=== PATIENT | male | born 1970 | race African-American/Black ===

== ENCOUNTER → 2019-06-12 15:35 | Outpatient (CLI) | payer BC, SELFPAY ==
--- NOTE | 2019-06-12 15:43 | XR_ITS ---
PROCEDURE: XR ANKLE LT MIN 3V CLINICAL INDICATION: Ankle FX Follow-up closed reduction fracture COMPARISON: XR TIBIA FIBULA LT 2V from 06/11/2019 FINDINGS: There has been interval improvement in the displacement of the medial malleolar and distal fibular fractures. The ankle mortise remains slightly widened. Nondisplaced posterior distal tibial fracture also noted. There is a posterior splint in place. IMPRESSION: Status post closed reduction with improved alignment of the lateral malleolar and medial malleolar fractures. Dictated by: Prudencio Jacob MD 06/12/2019 17:40 Electronically signed by Prudencio Jacob MD in [place] 06/12/2019 17:40
--- NOTE | 2019-06-12 15:43 | XR_ITS ---
PROCEDURE: XR CHEST 2V CLINICAL HISTORY: HTN,PRIOR TOBACCO USE COMPARISON: No exams were available for comparison FINDINGS: Normal heart size. No evidence of CHF. The superior mediastinum is somewhat prominent. This may only be vasculature. Follow-up suggested to confirm stability. The lungs are clear without infiltrates, suspicious nodules, or pleural effusions. No acute bony abnormalities. IMPRESSION: Mild prominence of the superior mediastinum in the paratracheal region of questionable clinical significance. Consider follow-up to confirm stability Dictated by: Prudencio Jacob MD 06/12/2019 17:38 Electronically signed by Prudencio Jacob MD in [place] 06/12/2019 17:38
[2019-06-12 16:01] LABS: Basophils % 0.4 % (0.1-2.0); Eosinophils # 0.1 K/mm3 (0.0-0.4); Eosinophils % 1.5 % (0.1-12.0); Hematocrit 40.5 % (42.0-52.0); Hemoglobin 12.9 g/dL (14.1-18.0); Lymphocytes # 1.5 K/mm3 (0.7-4.5); Lymphocytes % 18.8 % (10-50); Mean Corpuscular HGB Conc 31.9 g/dL (31.8-35.4); Mean Corpuscular Hemoglobin 33.7 pg (27.0-31.2); Mean Corpuscular Volume 105.6 fl (80-94); Mean Platelet Volume 7.3 fl (7.4-10.4); Monocytes # 0.7 K/mm3 (0.1-1.0); Monocytes % 8.6 % (1.7-9.3); Neutrophils # 5.7 K/mm3 (1.8-7.8); Neutrophils % 70.7 % (37.0-80.0); Platelet Count 290 K/mm3 (142-424); Red Blood Count 3.84 M/mm3 (4.60-6.20); Red Cell Distribution Width 13.3 % (11.5-17.5); White Blood Count 8.1 K/mm3 (4.8-10.8)
[2019-06-12 16:51] LABS: Alanine Aminotransferase 16 U/L (12-78); Albumin Level 3.9 gm/dL (3.4-5.0); Albumin/Globulin Ratio 1.3 (1.1-1.8); Alkaline Phosphatase 115 U/L (46-116); Anion Gap 12.1 mEq/L (5-15); Aspartate Amino Transferase 14 U/L (15-37); Bilirubin,Total 0.6 mg/dL (0.2-1.0); Blood Urea Nitrogen 11 mg/dL (7-18); Calcium 8.8 mg/dL (8.5-10.1); Carbon Dioxide 27 mmol/L (21.0-32.0); Chloride 102 mmol/L (98-107); Creatinine,Serum 0.95 mg/dL (0.70-1.30); Estimated Glomerular Filt Rate 84 ml/min (>60); GFR (African American) 102 ML/MIN (>60); Globulin 2.9 gm/dl (1.3-3.2); Glucose 100 mg/dL (74-106); Potassium 4.1 mmoL/L (3.5-5.1); Sodium 137 mmol/L (136-145); Total Protein,Serum 6.8 gm/dL (6.4-8.2)
== END ==
PROVIDERS: Visit Provider Orthopaedic Surgery
DX: Z01.818 Encounter for other preprocedural examination (principal); S82.842A Displaced bimalleolar fracture of left lower leg, initial encounter for closed fracture
CPT/HCPCS: 36415; 71046; 73610; 80053; 85025

== ENCOUNTER → 2019-06-24 12:45 | Outpatient (CLI) | payer BC, SELFPAY ==
--- NOTE | 2019-06-24 12:54 | XR_ITS ---
PROCEDURE: XR ANKLE LT MIN 3V CLINICAL INDICATION: follow up from ORIF LT ankle; out of splint COMPARISON: XR ANKLE LT MIN 3V from 06/12/2019 FINDINGS: There is now orthopedic hardware with fixation plate and fixation screws involving distal fibula and fixation screws along the medial malleolus. There is anatomic alignment of the fracture fragments. The joint spaces and alignment are normal. Bone density is normal. The splint device is no longer present. IMPRESSION: Postoperative findings as described. Dictated by: Jeb Rocha 06/24/2019 13:27 Electronically signed by Jeb Rocha in [place] 06/24/2019 13:28
== END ==
PROVIDERS: PCP Family Medicine; Visit Provider Orthopaedic Surgery
DX: S82.842A Displaced bimalleolar fracture of left lower leg, initial encounter for closed fracture (principal); Z48.89 Encounter for other specified surgical aftercare
CPT/HCPCS: 73610

== ENCOUNTER 2019-06-29 16:24 | Outpatient (RCR) | payer BC, SELFPAY | END 2019-06-29 16:45 | disposition home or self-care (01) | LOC: PT 16:24 | PROVIDERS: Visit Provider Orthopaedic Surgery | DX: S82.852D Displaced trimalleolar fracture of left lower leg, subsequent encounter for closed fracture with routine healing (principal) | CPT/HCPCS: 97760 ==

== ENCOUNTER → 2019-07-24 13:35 | Outpatient (CLI) | payer BC, SELFPAY ==
--- NOTE | 2019-07-24 13:40 | XR_ITS ---
PROCEDURE: XR ANKLE LT MIN 3V CLINICAL INDICATION: ankle fx fu Follow-up fracture COMPARISON: XR ANKLE LT MIN 3V from 06/12/2019 XR ANKLE LT 2V from 06/16/2019 XR ANKLE LT MIN 3V from 06/24/2019 FINDINGS: Status post ORIF distal tib fib with no change in the hardware with good bony alignment compared to 06/24/2019. Oblique fracture of the distal fibula and medial malleolar region as well as posterior distal tibia once again noted. There has been development of a transverse band of lucency at the distal tibia at the epiphyseal remnant region. This may only be due to diffuse disuse osteopenia. An associated nondisplaced fracture would also be included in the differential diagnosis. IMPRESSION: The good alignment status post ORIF distal tib fib. There is a new transverse zone of lucency at the distal tibia which may only be due to diffuse osteopenia. Continued follow-up suggested Dictated by: Prudencio Jacob MD 07/24/2019 14:12 Electronically signed by Prudencio Jacob MD in [place] 07/24/2019 14:12
== END ==
PROVIDERS: PCP Family Medicine; Visit Provider Orthopaedic Surgery
DX: S82.842A Displaced bimalleolar fracture of left lower leg, initial encounter for closed fracture (principal)
CPT/HCPCS: 73610

== ENCOUNTER → 2019-08-14 13:53 | Outpatient (CLI) | payer BC, SELFPAY ==
--- NOTE | 2019-08-14 13:58 | XR_ITS ---
PROCEDURE: XR ANKLE LT MIN 3V CLINICAL INDICATION: Follow up of Lt ankle FX Follow-up ORIF/ COMPARISON: XR ANKLE LT MIN 3V from 06/12/2019 XR ANKLE LT 2V from 06/16/2019 XR ANKLE LT MIN 3V from 06/24/2019 XR ANKLE LT MIN 3V from 07/24/2019 FINDINGS: Status post ORIF distal fibula and medial malleolus with syndesmotic repair as previously described with good alignment overall not significantly changed. The ankle mortise appears intact. There is a lucent area along the talar dome laterally and could represent a small osteochondral defect or focal area of osteopenia. There is an avulsion fracture fragment along the neck of the talus anteriorly. IMPRESSION: No change good alignment status post ORIF distal tib fib as described above. Dictated by: Prudencio Jacob MD 08/14/2019 14:37 Electronically signed by Prudencio Jacob MD in [place] 08/14/2019 14:37
== END ==
PROVIDERS: PCP Family Medicine; Visit Provider Orthopaedic Surgery
DX: S82.842A Displaced bimalleolar fracture of left lower leg, initial encounter for closed fracture (principal)
CPT/HCPCS: 73610

== ENCOUNTER → 2019-09-14 13:30 | Outpatient (CLI) | payer BC, SELFPAY ==
--- NOTE | 2019-09-14 13:34 | XR_ITS ---
PROCEDURE: XR ANKLE LT MIN 3V CLINICAL INDICATION: Ankle FX COMPARISON: XR ANKLE LT 2V from 06/16/2019 XR ANKLE LT MIN 3V from 06/24/2019 XR ANKLE LT MIN 3V from 07/24/2019 FINDINGS: Orthopedic hardware is stable and appears to be intact. Bone density is normal. There is no acute fracture. Alignment joint spaces are normal. Soft tissues are unremarkable. IMPRESSION: Unremarkable. No change and no acute process. Dictated by: Jeb Rocha 09/14/2019 15:13 Electronically signed by Jeb Rocha in [place] 09/14/2019 15:13
== END ==
PROVIDERS: PCP Family Medicine; Visit Provider Orthopaedic Surgery
DX: S82.842A Displaced bimalleolar fracture of left lower leg, initial encounter for closed fracture (principal)
CPT/HCPCS: 73610

== ENCOUNTER 2019-10-02 15:30 | Outpatient (RCR) | payer BC, SELFPAY ==
--- NOTE | 2019-08-18 15:36 | HMH.PTOPEV ---
PT Outpatient Evaluation Rehab PT Outpatient Evaluation Start: 08/18/19 15:02 Freq: Status: Active Protocol: Document 08/18/19 15:02 SRINI (Rec: 08/18/19 15:35 SRINI [id number]) Electronically Signed By Kirill Jewell, PT 08/18/19 15:02 Outpatient Therapy Subjective History Subjective History Patient is a 49 year old male presenting to outpatient PT with reports of L post- surgical foot/ankle pain S/P L ankle ORIF for bi-malleolar fracture. Sx date 06/11/19 ( 9w5d S/P). Pt reports that he was carrying some groceries and fell resulting in bi- malleolar fracutre. Pt currently WBAT with orders to ween into lace up corsett ankle brace over the next 2 weeks. No other comorbidities to report. Chief Complaint Pain,Stiff,Swelling, Paresthesia,Weakness Symptom Type Ache,Numbness Symptoms Relieved By Ice Symptoms Aggravated By Standing,Bending/Stooping, Physical Activity,Walking Prior Functional Limitations None Current Functional Limitations Housework,Standing,Squatting, Recreation Activity,Walking, Stairs,Balance,Bending/ Stooping Symptom Description Constant but Variable Level of pain today (0-10) 2 Pain scale - at its best (0-10) 2 Pain scale - at its worst (0-10) 4 Ankle/Foot Eval Gait Observation General Gait Pattern Observation Antalgic Gait,Decrease Weight Bear (L) Palpation Tenderness left Ankle/Foot Palpation Findings Tenderness Ankle/Foot Palpation Overall Comment 3/4 ATF TTP positive PTF TTP positive CF TTP positive ROM Ankle/Foot Dorsiflexion w/Knee Extended 10 Active Range Motion (degrees) Ankle/Foot Plantar Flexion Active Range 60 of Motion (degrees) Ankle/Foot Eversion Active Range of 11 Motion (degrees) Ankle/Foot Inversion Active Range of 30 Motion (degrees) Ankle/Foot ROM Limitations Soft Tissue Tightness,Bony Restriction Great Toe ROM Reason Not Measured Within Functional Limits Accessory Movements Ankle Accessory Movements that Elicit Talus Dorsal Holloway,Talus Symptoms Ventral Holloway MMT left Ankle Dorsiflexion Strength Gra
--- NOTE | 2019-09-25 15:33 | HMH.RHREAS ---
Rehab Reassessment Rehab OP Re-assessment Start: 09/25/19 15:26 Freq: Status: Active Protocol: Document 09/25/19 15:27 SRINI (Rec: 09/25/19 15:32 SRINI [id number]) Electronically Signed By Kirill Jewell, PT 09/25/19 15:27 Rehab Re-assessment Subjective Subjective Pt reports 80% improvement since start of care. Objective Objective Notes AROM: DF 10; PF 45; INV/EV WNL MMT: DF 5/5, PF 5/5, INV/EV 5- /5 Pain: 1/10 today; 3/10 at worst over past week Neuro: WNL Special Tests: negative Assessment Progress Assessment Progressing as Expected Assessment Notes Pt is progressing well with Rx . He has progressed to ambulation out of brace in normal shoe wear. No apparent gait deviations. He continues to have difficulty with descending stairs. He reports that MD has cleared him to return to work in approximately 2 weeks. Pt denies any expected difficulty with work related tasks. Patient goals met STG's, LTG's except for stairs Goals Not Met Stairs Revised Goals NA Plan Plan Continue with POC until return to work per MD/patient request. Frequency of Therapy 2x/week Duration of therapy 2 weeks. Time and Billing Re-Eval Time 15 Re-Eval Billing Units 1 PHYSICIAN CERTIFICATION: I certify the specified therapy services for Johnnie Dougherty are required, authorized, and reviewed every 30 days.
== END 2019-10-02 15:35 | disposition home or self-care (01) ==
LOC: PT 15:30
PROVIDERS: PCP Family Medicine; Visit Provider Orthopaedic Surgery
DX: S82.852D Displaced trimalleolar fracture of left lower leg, subsequent encounter for closed fracture with routine healing (principal)
CPT/HCPCS: 97010; 97014; 97016; 97110; 97140; 97163; 97164; G0283

== ENCOUNTER → 2019-11-02 13:53 | Outpatient (CLI) | payer BC, SELFPAY ==
--- NOTE | 2019-11-02 13:57 | XR_ITS ---
PROCEDURE: XR ANKLE WT BEARING LT MIN 3V CLINICAL INDICATION: ankle fx fu Follow-up fracture/ORIF COMPARISON: XR ANKLE LT MIN 3V from 06/24/2019 XR ANKLE LT MIN 3V from 07/24/2019 XR ANKLE LT MIN 3V from 08/14/2019 XR ANKLE LT MIN 3V from 09/14/2019 FINDINGS: Status post ORIF distal tib fib with no change in the fibular bone plate and medial malleolar screws as well as a translucent fixator between the distal tib fib. The ankle mortise is preserved. A small calcific density is present at the neck of the talus and may be due an avulsion injury. IMPRESSION: Good alignment status post ORIF distal tib fib Dictated by: Prudencio Jacob MD 11/02/2019 14:52 Electronically signed by Prudencio Jacob MD in [place] 11/02/2019 14:52
== END ==
PROVIDERS: PCP Family Medicine; Visit Provider Orthopaedic Surgery
DX: S82.842A Displaced bimalleolar fracture of left lower leg, initial encounter for closed fracture (principal)
CPT/HCPCS: 73610

== ENCOUNTER → 2020-05-02 10:09 | Outpatient (CLI) | payer BC, SELFPAY ==
--- NOTE | 2020-05-02 10:14 | XR_ITS ---
PROCEDURE: XR TIBIA FIBULA LT 2V CLINICAL INDICATION: Lower leg pain COMPARISON: CR XR TIBIA FIBULA LT 2V from 06/11/2019 FINDINGS: Prior ORIF distal tib fib with lateral fibular bone plate with prior syndesmosis repair with a translucent fixator at the distal tib fib and 2 screws within the medial malleolar region. The fracture lines are no longer apparent. No acute bony finding. The joint spaces are well preserved. IMPRESSION: Prior ORIF healed distal tib fib fracture with good alignment Dictated b Prudencio Jacob MD 05/02/2020 11:07 Prudencio Jacob MD in [place] 05/02/2020 11:07
== END ==
PROVIDERS: PCP Family Medicine; Visit Provider Orthopaedic Surgery
DX: S82.853A Displaced trimalleolar fracture of unspecified lower leg, initial encounter for closed fracture (principal)
CPT/HCPCS: 73590

== ENCOUNTER → 2020-05-18 12:21 | Outpatient (CLI) | payer BC, SELFPAY ==
--- NOTE | 2020-05-18 12:33 | CT_ITS ---
PROCEDURE: CT ANKLE LT WO CON CLINICAL HISTORY: Ankle pain FX 06/11/19,,PERSISTENT PAIN LATERALLY COMPARISON: CR XR ANKLE WT BEARING LT MIN 3V from 11/02/2019 TECHNIQUE: Axial images obtained with sagittal and coronal reformats. All CT scans at the facility use one or more dose reduction, viz: automated exposure control, ma/kV adjustment per patient size (including targeted exams where dose is matched to indication, i.e. head), or iterative reconstruction technique. FINDINGS: Prior ORIF of the tib fib distally. There are 2 screws traversing the medial malleolar region. A translucent fixator is present at the distal tib fib stabilizing the syndesmosis. There is a lateral bone plate at the distal fibula with multiple cortical screws. Fracture line is still visible at the distal fibula. The 3rd from the bottom cortical screw extends through the fracture line. There does appear to be bony union of the posterior aspect of this fracture but incomplete bony union anteriorly and laterally The talar dome has an unremarkable appearance. No evidence of screw fracture or bone plate fracture. There is some mild periarticular calcification at the tip of the medial malleolus and along the anterior aspect of the proximal talus. There is some mild soft tissue swelling at the tip of the lateral malleolus. IMPRESSION: Status post ORIF of the distal tib fib. There is incomplete bony union of the distal fibular fracture with persistent fracture line noted laterally and anteriorly. Dictated by: Prudencio Jacob MD 05/19/2020 08:22 Prudencio Jacob MD in [place] 05/19/2020 08:22
== END ==
PROVIDERS: PCP Family Medicine; Visit Provider Orthopaedic Surgery
DX: G89.18 Other acute postprocedural pain (principal); M25.572 Pain in left ankle and joints of left foot
CPT/HCPCS: 73700

== ENCOUNTER → 2020-06-03 09:36 | Outpatient (CLI) | payer BC, SELFPAY ==
--- NOTE | 2020-06-03 09:40 | XR_ITS ---
PROCEDURE: XR CHEST 2V CLINICAL HISTORY: HTN COMPARISON: CR XR CHEST 2V from 06/12/2019 FINDINGS: The cardiomediastinal silhouette and pulmonary vascularity are within normal limits. There are mild atelectatic or fibrotic changes in the left lung base. The remaining lungs are clear. No acute bony findings. IMPRESSION: Mild left basilar atelectasis or fibrosis Dictated by: Prudencio Jacob MD 06/03/2020 10:37 Prudencio Jacob MD in [place] 06/03/2020 10:37
--- NOTE | 2020-06-03 10:32 | ECG_ITS ---
APPROVED REPORT Exam: Resting ECG HR:53 bpm ECG Measurements Heart Rate 53 AXES [place] 138 P 13 QRSd 92 QRS 5 QT 412 T 11 QTc 386 <Conclusion> Sinus bradycardia Minimal voltage criteria for LVH, may be normal variant Borderline ECG Electronically signed by : Misbah Ragland, 06/05/2020 15:01:22
[2020-06-03 10:52] LABS: Basophils # 0.1 K/mm3 (0-0.2); Basophils % 0.6 % (0.1-2.0); Eosinophils # 0.2 K/mm3 (0.0-0.4); Eosinophils % 2.3 % (0.1-12.0); Hematocrit 42.6 % (42.0-52.0); Lymphocytes # 1.9 K/mm3 (0.7-4.5); Lymphocytes % 25.4 % (10-50); Mean Corpuscular HGB Conc 35.3 g/dL (31.8-35.4); Mean Corpuscular Hemoglobin 35.1 pg (27.0-31.2); Mean Corpuscular Volume 99.4 fl (80-94); Mean Platelet Volume 7.3 fl (7.4-10.4); Monocytes # 0.7 K/mm3 (0.1-1.0); Monocytes % 9.8 % (1.7-9.3); Neutrophils # 4.7 K/mm3 (1.8-7.8); Neutrophils % 61.9 % (37.0-80.0); Platelet Count 292 K/mm3 (142-424); Red Blood Count 4.29 M/mm3 (4.60-6.20); Red Cell Distribution Width 13.4 % (11.5-17.5); White Blood Count 7.5 K/mm3 (4.8-10.8)
[2020-06-03 11:30] LABS: 25-OH Vitamin D, Total 34.6 ng/mL (30-100)
[2020-06-03 11:54] LABS: Chloride 104 mmol/L (98-107); Potassium 4.3 mmoL/L (3.5-5.1); Sodium 141 mmol/L (136-145)
[2020-06-03 11:56] LABS: Alanine Aminotransferase 16 U/L (12-78); Aspartate Amino Transferase 25 U/L (17-59); Blood Urea Nitrogen 17 mg/dl (9-20); Estimated Glomerular Filt Rate 89 ml/min (>60); GFR (African American) 108 ML/MIN (>60)
[2020-06-03 11:57] LABS: Albumin Level 4.5 g/dl (3.5-5.0); Albumin/Globulin Ratio 1.7 (1.1-1.8); Alkaline Phosphatase 107 U/L (38-126); Anion Gap 15.3 mEq/L (5-15); Bilirubin,Total 0.5 mg/dl (0.2-1.3); Calcium 9.6 mg/dl (8.4-10.2); Carbon Dioxide 26 mmol/L (22.0-30.0); Globulin 2.7 g/dL (1.3-3.2); Glucose 94 mg/dl (74-100); Total Protein,Serum 7.2 g/dl (6.3-8.2)
[2020-06-13 09:33] LABS: Nicotine 1.9
[2020-06-13 09:34] LABS: Cotinine 83.1
== END ==
PROVIDERS: PCP Family Medicine; Visit Provider Podiatrist
DX: S82.852K Displaced trimalleolar fracture of left lower leg, subsequent encounter for closed fracture with nonunion (principal)
CPT/HCPCS: 36415; 71046; 80053; 80323; 82306; 85025; 93005

== ENCOUNTER → 2020-06-20 14:54 | Outpatient (CLI) | payer BC, SELFPAY ==
[2020-06-20 16:01] LABS: Coronavirus 19 IgG Antibody Negative (Negative); Coronavirus 19 IgM Antibody Negative (Negative)
== END ==
PROVIDERS: Visit Provider Podiatrist
DX: Z01.89 Encounter for other specified special examinations (principal); S82.852A Displaced trimalleolar fracture of left lower leg, initial encounter for closed fracture; S82.892D Other fracture of left lower leg, subsequent encounter for closed fracture with routine healing
CPT/HCPCS: 36415; 86328

== ENCOUNTER 2020-06-22 08:53 | Day surgery (SDC) | payer BC, SELFPAY ==
[2020-06-22] VITALS (12 sets, daily range): BP systolic 101–168; BP diastolic 51–87; PULSE 63–90; RESP 16–18; TEMP 36.4–43; O2SAT 94–99; BMI 30.9
[2020-06-22 12:17] LABS: Appearance,Urine/Cath CLEAR (Clear); Bilirubin,Cath Negative (Negative); Blood, Urine/Cath Negative (Negative); Color,Urine/Cath YELLOW (Yellow); Glucose,Urine/Cath (UA) Negative (Negative); Ketones,Urine/Cath Negative (Negative); Leukocyte Esterase,Cath Negative (Negative); Microscopic,Cath URINE MICROSCOPIC (MICROSCOPIC); Nitrate,Cath Negative (Negative); PH,Urine/Cath 5.5 (5.0-8.5); Protein,Urine/Cath Negative (Negative); Specific Gravity, Urine/Cath >= 1.030 (1.005-1.030); Urobilinogen,Cath 0.2 EU/dl (0.2)
[2020-06-22 12:55] LABS: RBC,Urine/Cath Occasional # /hpf (0-3); Squamous Epithelial Ur./Cath Occasional #/hpf (0-5)
--- NOTE | 2020-06-22 13:38 | HMH.ANESCL ---
[facility] Anesthesia Checklist - Patient Identification Patient Identification: Arm Band - Structural Data Admitted From: Home Planned Operative Procedure/s: ORIF Left Ankle Consent for Planned Operative Procedure(s) Verified: Yes Verified Documents: Surgical Consent, History and Physical - NPO Status Verified Time NPO: 00:00 - Additional verifications Anesthesia Reactions: No Hx Blood Transfusions: No Blood Transfusion Reaction: No - Airway Assessment C-Spine Mobility Assessed: Yes (mp1) TMJ Mobility Assessed: Yes Dentition: Good Dentition - Neurological Assessment Level of Consciousness: Awake, Alert - Anesthesia Plan Anesthesia Risk discussed: Yes Anesthesia Plan: Verified ASA Class: II Anesthesia Type: General w/block (Popliteal/saphenous. Risks/benefits of nerve block discussed with pt. Pt verbalizes understanding) [facility] History I have reviewed the patient's past medical history: Yes Medical History: Reports:: Depression, Hypertension Denies:: Cancer, Diabetes Mellitus Type 1, Diabetes Mellitus Type 2, Internal Pacemaker, MRSA, Seizures *Have you ever received a pneumonia vaccine?: No *Have you received a flu vaccine this season?: Yes Other Medical History: Reports: Arthritis. Denies: Blood Transfusion Reaction Anesthesia experience/problems:: nac Laterality Cases: Bilateral: Arthroscopy Knee, Carpal Tunnel Release Other Surgeries: Yes: Other. No: Pacemaker Amputation: No Fractures: Yes - *Social History Smoking Status: Unknown if ever smoked Tobacco Type: smokeless tobacco # Packs/Day (cigarettes): 0 Alcohol Intake: never Alcohol Intake Frequency:: 3 or more drinks per day Substance Use Type: denies use *Occupational Status:: employed Housing: house Household Members: spouse *Travel in the last 8 weeks: None - Psychiatric History Pschychiatric History:: Reports:: Depression Family Hx:: No significant family history
--- NOTE | 2020-06-22 14:00 | XR_ITS ---
PROCEDURE: XR ANKLE LT MIN 3V CLINICAL INDICATION: Post op ankle ORIF COMPARISON: CR XR ANKLE LT MIN 3V from 08/14/2019 DX XR ANKLE LT MIN 3V from 09/14/2019 CR XR ANKLE WT BEARING LT MIN 3V from 11/02/[address] ANKLE LT WO CON from 05/18/2020 CR XR ANKLE LT 2V from 06/22/2020 FINDINGS: There is good alignment. A splint is in place. The new lateral bone plate has been placed along the distal fibula with good alignment. Medial malleolar screws remain in place. There is an additional oblique screw having been placed through the distal fibula. IMPRESSION: Good alignment status post ORIF Dictated by: Prudencio Jacob MD 06/22/2020 15:13 Prudencio Jacob MD in [place] 06/22/2020 15:13
--- NOTE | 2020-06-22 14:09 | XR_ITS ---
PROCEDURE: XR ANKLE LT 2V CLINICAL INDICATION: LEFT ORIF ANKLE IN OR COMPARISON: CR XR ANKLE LT MIN 3V from 07/24/2019 CR XR ANKLE LT MIN 3V from 08/14/2019 DX XR ANKLE LT MIN 3V from 09/14/[address] ANKLE LT WO CON from 05/18/2020 FINDINGS: Fluoroscopy time: 0.42 minute. Three images submitted with the C-arm 1 of which shows the metallic stylette overlying the level of the ankle joint. One other AP and 1 lateral view. IMPRESSION: C-arm utilized for manipulation. Dictated by: Prudencio Jacob MD 06/22/2020 15:10 Prudencio Jacob MD in [place] 06/22/2020 15:10
--- NOTE | 2020-06-22 14:53 | P.PN_ITS ---
[facility] Anesthesia Record Part I Intake, IV Amount: 2,000 Estimated blood loss (mL): 20 Urine output (mL): 600 Blood Pressure: 112/78 SaO2: 94 Pulse Rate: 90 Respiratory Rate: 16 Temperature: 98 F Patient is:: Drowsy, Stable Stable to PACU at:: 14:50
--- NOTE | 2020-06-22 15:11 | HMH.OPNOTE ---
Date of procedure: 06/22/20 Pre-op Diagnosis:: 1. 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 Left ankle instability 3. Left ankle synovitis 4. Left deltoid ligament tear Post-op Diagnosis:: Same Procedure performed:: 1. Left ankle fracture revision of nonunion 2. Left ankle open reduction internal fixation revision 3. Left ankle medial arthrotomy, repair deltoid ligament 4. Left open direct repair ATFL, modified Brostrum ankle ligament stabilization 5. Left hardware removal 6. Left ankle synovectomy 7. Left ankle application of injectable bone graft 8. Application of injectable amniotic tissue 9. Application of posterior splint Surgeon:: Meg Gongora DPM Broomcorn Thresher(s):: Gabrielle Gibbons SHIP ENGINEER:: Guillaume Edge Anesthesia: GETA, regional (Left popliteal block) Estimated blood loss (mL): 30 Clinical Note:: Left trimalleolar ankle fracture nonunion DOI: 06/11/19, S/p left ankle ORIF on 06/16/[address] Keen. X-rays 2 views tibia and fibula 05/02/2020. FINDINGS: Prior ORIF distal tib fib with lateral fibular bone plate with prior syndesmosis repair with a translucent fixator at the distal tib fib and 2 screws within the medial malleolar region. The fracture lines are no longer apparent. No acute bony finding. The joint spaces are well preserved. IMPRESSION: Prior ORIF healed distal tib fib fracture with good alignment . CT LEFT ANKLE, 05/18/20 FINDINGS: Prior ORIF of the tib fib distally. There are 2 screws traversing the medial malleolar region. A translucent fixator is present at the distal tib fib stabilizing the syndesmosis. There is a lateral bone plate at the distal fibula with multiple cortical screws. Fracture line is still visible at the distal fibula. The 3rd from the bottom cortical screw extends through the fracture line. There does appear to be bony union of the posterior aspect of this fracture but incomplete bony union anteriorly and laterally. The talar dome has an unremarkable appearance. No evidence of screw fracture or bone plate fracture. There is some mild periarticular calcification at the tip of the medial malleolus and along the anterior aspect of the proximal talus. There is some mild soft tissue swelling at the tip of the lateral malleolus. IMPRESSION: Status post ORIF of the distal tib fib. There is incomplete bony union of the distal fibular fracture with persistent fracture line noted laterally and anteriorly. X-rays and CT scan reviewed and discussed with the patient. Patient reports having pain daily to the left ankle since surgery. He reports occasional feelings of weakness and being off balance. The main complaint is pain at the distal fibula which radiates above the plate laterally and pain and stiffness on the inside of the ankle. He reports popping and cracking. He states every morning he there is some stiffness and he has to do nonweightbearing range of motion exercises before he gets up. 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 He states at the end of the workday there is pain and swelling to the left ankle. We discussed reasons for nonunion can include: Re-injury, diabetes, poor bone quality, vitamin D deficiency, smoking/nicotine, other comorbidities and noncompliance. Conservative treatment discussed but not recommended at this point. Conservative and prior surgical intervention has included: Surgery 06/16/2019, immobilization in a cast/splint, fracture boot, ice, elevation, modification of shoe gear, modification of activity, NSAIDs, narcotics, stretching, formal physical therapy, bracing/strapping. Patient states he is unable to do activities that he used to do secondary to pain and swelling. DOI: 06/11/19. We discussed surgery. All risks and benefits were discussed including but not limited to: damage to blood vessels and nerves, bleeding, infection, wound complications, delayed, mal or non-union of bone, post-traumatic arthritis,
--- NOTE | 2020-06-22 17:05 | HMH.ANESII ---
[facility] Anesthesia Record Part II Discharge Time: 15:20 Destination: Surgical Day Care (OP Surgery) PACU nurse assessment reviewed?: Yes Patient Condition:: Good Anesthesia Complications:: None Swallowing reflex intact?: Yes Cyanosis?: No Blood Pressure: 112/58 Pulse Rate: 89 Temperature: 97.8 F Mental Status: Alert & Oriented Pain level:: 3 Nausea and/or vomitting:: None Intake, IV Amount: 0
== END 2020-06-22 16:09 | disposition home or self-care (01) ==
LOC: OR 08:57
PROVIDERS: PCP Family Medicine; Visit Provider Podiatrist
PROC: (CPT 20680; principal; 2020-06-22 10:15)
DX: S82.852K Displaced trimalleolar fracture of left lower leg, subsequent encounter for closed fracture with nonunion (principal); W17.89XD Other fall from one level to another, subsequent encounter
CPT/HCPCS: 20680; 27822; 27625; 73600; 73610; 76000; 81001; 96374; C1713; C1734; C1762; C1776; J2405

== ENCOUNTER → 2020-07-26 14:33 | Outpatient (CLI) | payer BC, SELFPAY ==
--- NOTE | 2020-07-26 14:44 | XR_ITS ---
PROCEDURE: XR ANKLE WT BEARING LT MIN 3V post cast removal CLINICAL INDICATION: post-op COMPARISON: CR XR TIBIA FIBULA LT 2V from 05/02/2020 CR XR ANKLE LT MIN 3V from 06/22/2020 FINDINGS: The lung lateral fibular bone plate is again noted transfixed by multiple threaded screws fixating the distal fibular fracture in anatomic alignment. The 2 threaded screws are again seen extending obliquely upward in the medial malleolus. Ankle mortise appears normal. The additional oblique fibular screw is again seen. IMPRESSION: Satisfactory ORIF distal tib fib fracture Dictated by: Dr. Aashish Jo MD 07/26/2020 15:13 Dr. Aashish Jo MD in [place] 07/26/2020 15:13
== END ==
PROVIDERS: PCP Family Medicine; Visit Provider Podiatrist
DX: M25.572 Pain in left ankle and joints of left foot (principal); Z98.890 Other specified postprocedural states
CPT/HCPCS: 73610

== ENCOUNTER → 2020-08-23 14:20 | Outpatient (CLI) | payer BC, SELFPAY ==
--- NOTE | 2020-08-23 14:22 | XR_ITS ---
PROCEDURE: XR ANKLE WT BEARING LT MIN 3V CLINICAL INDICATION: post-op, follow-up surgery COMPARISON: CR XR ANKLE WT BEARING LT MIN 3V from 11/02/2019 CR XR ANKLE LT 2V from 06/22/2020 CR XR ANKLE LT MIN 3V from 06/22/2020 CR XR ANKLE WT BEARING LT MIN 3V from 07/26/2020 FINDINGS: Status post ORIF distal tib fib with no change in the orthopedic hardware. Oblique fracture of the distal fibula once again noted not significantly changed. IMPRESSION: Good alignment status post ORIF distal tib fib. Fracture line of the distal fibula once again noted unchanged. Dictated by: Prudencio Jacob MD 08/23/2020 15:24 Prudencio Jacob MD in [place] 08/23/2020 15:24
== END ==
PROVIDERS: PCP Family Medicine; Visit Provider Podiatrist
DX: Z98.890 Other specified postprocedural states (principal)
CPT/HCPCS: 73610

== ENCOUNTER 2020-09-13 15:00 | Outpatient (RCR) | payer BC, SELFPAY ==
--- NOTE | 2020-08-11 14:37 | HMH.PTOPEV ---
PT Outpatient Evaluation Rehab PT Outpatient Evaluation Start: 08/11/20 13:31 Freq: Status: Active Protocol: Document 08/11/20 13:31 KHLOE (Rec: 08/11/20 14:37 KHLOE [id number]) Electronically Signed By Kwesi Alberto, PT 08/11/20 13:31 Outpatient Therapy Subjective History Subjective History Pt presents s/p L ankle sx. ORIF (previous bilmalleolar fx /sx-06/11) removal of old hardware with fixation of new hardware on 06/22/20. Pt reports markedly improved L ankle pain and swelling since most recent sx., however, reports chronic L ankle weakness and tightness. Chief Complaint Pain,Stiff,Weakness Symptom Type Ache,Dull Symptoms Relieved By Rest/Positioning Symptoms Aggravated By Standing,Walking Prior Functional Limitations Standing,Walking,Stairs Current Functional Limitations Standing,Walking,Stairs Symptom Description Intermittent Level of pain today (0-10) 0 Pain scale - at its best (0-10) 0 Pain scale - at its worst (0-10) 2 Ankle/Foot Eval Gait Observation General Gait Pattern Observation Antalgic Gait,Wide Based Gait Palpation Tenderness left Ankle/Foot Palpation Findings Tenderness Ankle/Foot Palpation Overall Comment mid shaft fibula 1-2/4 ROM Ankle/Foot Dorsiflexion w/Knee Extended 0-8 Active Range Motion (degrees) Ankle/Foot Plantar Flexion Active Range 0-45 of Motion (degrees) Ankle/Foot Eversion Active Range of 0-20 Motion (degrees) Ankle/Foot Inversion Active Range of 0-55 Motion (degrees) MMT Ankle Dorsiflexion Strength Grade 4 Good Ankle Plantarflexion Strength Grade 4 Good Foot Eversion Strength Grade 4- Good- Foot Inversion Strength Grade 4- Good- Outpatient Therapy Assessment Impairments Problems/Impairmments Palpation Tenderness,Impaired Range of Motion,Impaired Strength,Impaired Gait Pattern ,Impaired Walking,Impaired Standing,Impaired Stair Climbing,Subjective C/O Pain, Impaired Self Care/Self Management Prognosis Rehab Potential Good Clinical Impression Consistent with Diagnosis Yes Short Term Goals Number of Weeks 4 Decreased Palpation Tenderness Yes: 0-1/4 Increase Range of Motion Yes: WFL Increase Strength Yes: 4+-5/5 LLE Improve Gait Pattern without Assistive Yes: WFL
--- NOTE | 2020-09-13 15:23 | HMH.RHREAS ---
Rehab Reassessment Rehab OP Re-assessment Start: 09/13/20 15:02 Freq: Status: Active Protocol: Document 09/13/20 15:15 JOELCARLOS (Rec: 09/13/20 15:23 ADRIENVICTORINOCARLOS [id number]) Electronically Signed By Kwesi Alberto, PT 09/13/20 15:15 Rehab Re-assessment Subjective Subjective PT REPORTS 0/10 L ANKLE PAIN W /ACTIVITY, AND FEELS 90% BETTER OVERALL SINCE I EVAL. ' THE ONLY TIME I HAVE ANY PAIN IS WHEN I RUN'. Objective Objective Notes AROM: L ANKLE DF 0-10, PF 0-55 , INV 0-55, EVR 0-25 MMT: L DF 4+-5/5, PF 4+-5/5, INV 5/5, EVR 4+-5/5 TTP: L ANKLE 0-1/4 SINUS TARSI Assessment Progress Assessment Progressing as Expected Assessment Notes PT W/IMPROVED AROM, STRENGTH, AND TTP Patient goals met [facility] 07/02 Plan Plan PT TO HOLD IN-PERSON SKILLED P .T. SESSIONS UNTIL FOLLOW-UP VISITS W/REFERRING PHYSICIAN ON 09/28/20, AND TO CONT. W/HEP. Time and Billing Re-Eval Time 15 Re-Eval Billing Units 1 PHYSICIAN CERTIFICATION: I certify the specified therapy services for Johnnie Dougherty are required, authorized, and reviewed every 30 days.
== END 2020-09-13 15:05 | disposition home or self-care (01) ==
LOC: PT 15:00
PROVIDERS: PCP Family Medicine; Visit Provider Podiatrist
DX: S82.842A Displaced bimalleolar fracture of left lower leg, initial encounter for closed fracture (principal); Z98.890 Other specified postprocedural states
CPT/HCPCS: 97014; 97016; 97110; 97112; 97163; 97164; G0283

== ENCOUNTER → 2020-09-27 15:40 | Outpatient (CLI) | payer BC, SELFPAY ==
--- NOTE | 2020-09-27 15:47 | XR_ITS ---
PROCEDURE: XR ANKLE WT BEARING LT MIN 3V CLINICAL INDICATION: post-op Follow-up surgery COMPARISON: CR XR ANKLE LT MIN 3V from 06/24/2019 DX XR ANKLE LT MIN 3V from 09/14/2019 CR XR ANKLE LT 2V from 06/22/2020 CR XR ANKLE LT MIN 3V from 06/22/2020 CR XR ANKLE WT BEARING LT MIN 3V from 07/26/2020 CR XR ANKLE WT BEARING LT MIN 3V from 08/23/2020 FINDINGS: Status post ORIF. There is a lateral bone plate at the distal fibula with multiple cortical screws. The fracture line persists at the distal aspect of the fibula. There are 2 cortical screws within the medial malleolar region IMPRESSION: Good alignment status post ORIF. There remains incomplete bony union of the distal fibular fracture. Dictated by: Prudencio Jacob MD 09/27/2020 18:02 Prudencio Jacob MD in [place] 09/27/2020 18:02
== END ==
PROVIDERS: PCP Family Medicine; Visit Provider Podiatrist
DX: Z98.890 Other specified postprocedural states (principal); M25.872 Other specified joint disorders, left ankle and foot
CPT/HCPCS: 73610

== ENCOUNTER → 2020-11-28 15:55 | Outpatient (CLI) | payer BC, SELFPAY ==
--- NOTE | 2020-11-28 15:59 | XR_ITS ---
PROCEDURE: XR ANKLE WT BEARING LT MIN 3V CLINICAL INDICATION: post-op Follow-up surgery COMPARISON: CR XR ANKLE LT MIN 3V from 06/22/2020 CR XR ANKLE WT BEARING LT MIN 3V from 07/26/2020 CR XR ANKLE WT BEARING LT MIN 3V from 08/23/2020 CR XR ANKLE WT BEARING LT MIN 3V from 09/27/2020 FINDINGS: Lateral fibular bone plate with cortical screws and 2 screws within the medial malleolar region once again noted. There is good alignment of the fibular fracture. Fracture line remains visible. IMPRESSION: No change of the postsurgical changes and distal fibular fracture with good alignment Dictated by: Prudencio Jacob MD 11/29/2020 17:55 Prudencio Jacob MD in [place] 11/29/2020 17:55
== END ==
PROVIDERS: PCP Family Medicine; Visit Provider Podiatrist
DX: M25.572 Pain in left ankle and joints of left foot (principal); Z98.890 Other specified postprocedural states
CPT/HCPCS: 73610

== ENCOUNTER → 2021-06-20 14:04 | Outpatient (CLI) | payer BC, SELFPAY ==
--- NOTE | 2021-06-20 14:09 | XR_ITS ---
PROCEDURE: XR ANKLE WT BEARING LT MIN 3V CLINICAL INDICATION: postop COMPARISON: CR XR ANKLE WT BEARING LT MIN 3V from 07/26/2020 CR XR ANKLE WT BEARING LT MIN 3V from 08/23/2020 CR XR ANKLE WT BEARING LT MIN 3V from 09/27/2020 CR XR ANKLE WT BEARING LT MIN 3V from 11/28/2020 FINDINGS: Status post ORIF left tib fib. No change in the bony hardware of the tibia and fibula with good bony alignment of the distal fibular fracture. The fracture line does appear less apparent. The ankle mortise is preserved and the talar dome has an unremarkable appearance. IMPRESSION: Good alignment status post ORIF distal tib fib Dictated by: Prudencio Jacob MD 06/20/2021 15:24 Prudencio Jacob MD in [place] 06/20/2021 15:24
== END ==
PROVIDERS: PCP Family Medicine; Visit Provider Podiatrist
DX: M25.572 Pain in left ankle and joints of left foot (principal); M25.872 Other specified joint disorders, left ankle and foot
CPT/HCPCS: 73610

== ENCOUNTER → 2021-08-21 14:19 | Outpatient (CLI) | payer BC, SELFPAY ==
--- NOTE | 2021-08-21 14:22 | XR_ITS ---
PROCEDURE: XR ANKLE WT BEARING LT MIN 3V CLINICAL INDICATION: ankle injury, hx of ORIF COMPARISON: CR XR ANKLE WT BEARING LT MIN 3V from 08/23/2020 CR XR ANKLE WT BEARING LT MIN 3V from 09/27/2020 CR XR ANKLE WT BEARING LT MIN 3V from 11/28/2020 CR XR ANKLE WT BEARING LT MIN 3V from 06/20/2021 FINDINGS: S/p ORIF left ankle with lateral fibular bone plate and cortical screws and with 2 oblique screws through the medial malleolar region. There is good alignment. Oblique lucency noted through the distal cancino fibula medially similar to the previous exam. IMPRESSION: Good alignment status post ORIF distal tib fib. No change oblique lucency of the distal fibula Dictated by: Prudencio Jacob MD 08/21/2021 16:01 Prudencio Jacob MD in [place] 08/21/2021 16:01
== END ==
PROVIDERS: PCP Family Medicine; Visit Provider Podiatrist
DX: M25.572 Pain in left ankle and joints of left foot (principal)
CPT/HCPCS: 73610